=== PATIENT | male | born 1960 | race Caucasian/White ===

== ENCOUNTER 2021-09-12 03:08 | Outpatient (CLI) | payer BC, SELFPAY ==
[2021-09-12 11:07] LABS: Source Nasal/Nares
[2021-09-12 14:01] LABS: COVID-19 PCR Positive (Negative)
== END 2021-09-12 03:09 | disposition home or self-care (01) ==
LOC: LBO 03:08
PROVIDERS: PCP Internal Medicine; Visit Provider Surgery
DX: Z20.822 Contact with and (suspected) exposure to COVID-19 (principal)
CPT/HCPCS: 87635

== ENCOUNTER 2022-01-02 07:05 | Day surgery (SDC) | payer BC, SELFPAY ==
--- NOTE | 2022-01-01 11:04 | HPE_ITS ---
Assessment and Plan Assessment and plan (1) Tubulovillous adenoma of colon: Assessment and plan: Plan:Colonscopy w/ MAC The?patient will be scheduled by my office. ? The pt understands that they need to do a bowel prep and the importance of hydration during this.? The patient understands there is a theoretical risk of renal failure.? For healthy patients we use Gatorade/Miralax Prep.? ?For anyone with renal concerns- GoLytely will be used. ? Plavix and coumadin will need to be held except in unusual circumstances. ? Patients in A. Fib do not need to be bridged with Lovenox or on CVA prophylaxis.? A baby ASA can be continued but full dose ASA needs to be stopped for 10 days prior to the procedure. ? A complete H & P is required within 30 days of the procedure.? GETA w/out airway is used for anesthesia, w/ associated risks. Colonoscopy does not require antibiotics prophylaxis, except as noted below. ? Informed consent is obtained for the procedural (explained in simple layman's terms that?the pt and/or family could understand) explaining risks vs benefits and alternatives to the procedure and consequences if we do not do the procedure and need/rational for the procedure. Risks include but are not limited to: bleeding, infection, perforation of colon.? This would necessitate emergency surgery to repair the damage w/ possible ostomy; and other associated complications w/ the required surgery. ? Also complications of anesthesia including aspiration, NE/CVA/.I discussed with the?patient would they could expect during the procedure, post procedure and recovery time and risks.? The pa geri understands that they need to have a ride home after the procedure.? The patient was given all this information in writing and expressed understanding. If there are any questions or concerns please feel free to contact our office.? ? ? History of Present Illness Narrative: 10 y/o male with history presents for colonoscopy screening pre-op. His last screening was in 2017, which was remarkable for tubulovillious adenoma. He denies a family history of colon cancer. He denies any changes in bowel habits including bloody or black tarry stools, abdominal pain, diarrhea or constipation. He denies constitutional symptoms. Denies use of marijuana or any other recreational or illegal drugs. He denies chest pain, palpitations, dyspnea or dyspnea with exertion. He denies prior history or family history of adverse reactions or complications with anesthesia. The patient denies any history of stroke, NE, seizures, bleeding or clotting disorders. He denies having any implanted metal in his body. pt procedure had to pt cancelled b/c of covid. He had covid in september. Here is here today for CE. Patient completed a bowel prep last p.m. The results are just a clear yellow today. He is having no abdominal pain or nausea currently. He is not currently having any chest pain, shortness of breath, pedal cough or fevers.. All questions are answered to his satisfaction. He is stable for the proposed procedure. Review of Systems All systems reviewed & are unremarkable except as noted in HPI and below PFSH All Active Problems Colon cancer screening (Acute) Loss of vision (Acute) Umbilical hernia (Acute) Medical History COVID-19 09/12/21 Tubulovillous adenoma of colon Surgical History Colonoscopy - IV Sedation (01/15/17) Repair, Ligament ACL Social History Smoking/Tobacco Use Status: Current every day Tobacco Type: smokeless tobacco Smokeless tobacco user: chewing tobacco Smoking risk assessment performed?: Yes Alcohol Intake: current Alcohol Intake frequency: holidays/special occasions only Drug use: Never Substance use type: does not use Do you feel safe at home: Yes Do you feel safe in your relationship?: Yes Meds Allergies and Home Medications Allergies Allergy/AdvReac Type Severity Reaction Status Date / Time No Known Allergies Allergy Unverified 01/02/22 07:19 Home Medications Medication Instructions Recorded Confirmed Type ibuprofen 200 mg tablet (Advil) 400 mg PO Q4H PRN PRN #40 11/30/12 01/01/22 Rx bisacodyl 5 mg tablet,delayed 5 mg PO ONCE #4 tab 09/04/21 01/02/22 Rx release (Dulcolax (bisacodyl)) polyethylene glycol 3350 17 238 g PO ONCE #238 g 09/04/21 01/02/22 Rx gram/dose oral powder Exam Narrative Exam Narrative: PHYSICAL EXAM GENERAL APPEARANCE: Alert, healthy appearance, oriented, in no acute distress SKIN: No rashes.? No breakdown HYDRATION: Well hydrated HEAD, EYES, EARS, NECK, THROAT: Head is normocephalic, pupils equal, round, reactive to light and accommodation, ocular movement intact, sclera clear and no jaundice. ?Dentition intact. No sore throat.? No jaw pain. No thrush NECK: Supple, Trachea midline. No JVD. LUNGS: normal respiration/nl chest excursion. ?Clear to auscultation B/l no R/R/W ?HEART: Regular rate and rhythm, EXTREMITY: No edema or cyanosis? no leg pain, redness, swelling.? No IV infi ltration ABDOMEN: non tender to palpation, no masses or distention, no hernias. Normal bowel sounds NEURO: no focal neuro deficits. ?
--- NOTE | 2022-01-01 13:46 | W.COLOREPORT ---
Colonoscopy Report Date of procedure: 01/02/22 Pre-op diagnosis general: villous of cecum- 2017 Post-op diagnosis procedure note: other (polyps x2/r sided diverticula/hemorrhoids) Surgeon: Rossana Woodson Anesthesia Type: General:No Airway Estimated blood loss (mL): 1 Pathology: none sent Complications: Other Disposition: same day Prep: Miralax/Dulcolax Retraction Time: 10 Procedure Description: After informed consent was obtained the patient was taken to the procedure room and placed in a left decubitous position. Monitors were applied and a time out was done. The patients name, date of , procedure, allergies to medications and metal in their body was reviewed. The patient was then sedated. Once sedated and comfortable a rectal exam was done. External exam was normal. Internal exam revealed a normal sphincter tone and no palpable masses. The scope was then introduced and retrofelexed. Grade I x2 columns internal hemorrhoids were identified. The scope was then advanced to the cecum without. The TI and appendiceal orifice were identified. The prep was be BPS 3 in all segments for total of 9. The scope was then slowly retracted over 10 minutes back into the rectum. He had a 0.75 cm polyp that was removed 100 cm/adjacent to the cecum and, he had another small 5 mm flat polyp at 30 cm. Both of these are removed with cold biting forcep.. All specimen is retrieved and no bleeding is noted. He had a few small scattered large-mouthed right-sided diverticulum with no signs of bleeding or infection. He has grade 1 hemorrhoids. The mucosa is pink and healthy with a normal vascular pattern. The scope was removed and the patient was woken up and taken back to Same day surgery in stable condition. The patient tolerated the procedure well and there were no immediate complications. Follow up: The patient should follow up in repeat in 3 to 5 years, unless they develop changes in bowel habits or other new gastrointestinal complaints.
--- NOTE | 2022-01-01 14:18 | PDOC.DSDIS_ITS ---
Discharge Plan Disposition Patient Disposition: HOME Condition: Good Discharge Details Reason For Visit: colon scpoe Attending Provider: Rossana Woodson Primary Care Provider: Javier Quan Home Meds and New Rx's Prescriptions: Held ibuprofen [Advil] 200 MG tablet 400 mg PO Q4H PRN PRN (Reason: Pain) Qty: 40 0RF Hold Instructions: Resume on 01/05/22. no asa/nsaid's x 72 hrs Discontinued polyethylene glycol 3350 17 gram/dose powder 238 g PO ONCE Qty: 238 0RF Rx Instructions: take per colonoscopy instructions bisacodyl [Dulcolax (bisacodyl)] 5 mg tablet,delayed release (DR/EC) 5 mg PO ONCE Qty: 4 0RF Rx Instructions: take per colonoscopy instructions Discharge Instructions Additional Instructions: DSU Colonoscopy Post- Op Instructions Instructions for Everyone who is given Anesthesia: For your safety, please do the following for the next twenty-four (24) hours: *Do Not operate a motor vehicle (car, truck, motorcycle, etc.) *Do Not drink alcoholic beverages or use any recreational drugs for the first 24 hours or while taking pain medications. The medications in your body may have a reaction that can be dangerous. *Do Not make any important decisions or sign any important papers. Findings: x2 polyps R sided diverticula hemorrhoids Follow up: My office will send a letter with the results follow-up pathology in 2 to 3 weeks time, detailing as to what type of polyps they were and when we want you to repeat your colonoscopy. 1. No lifting over 20 pounds or strenuous activity for the first 24 hours after your procedure. After 24 hours there are no restrictions on your activity but you may feel fatigued for a few days. 2. After you arrive home you may have a light meal and return to your normal diet as you can tolerate it without feeling sick to your stomach. 3. You may have a bloated, gaseous feeling in your belly (abdomen) after a colonoscopy. Passing gas and belching will help. Walking or lying down on your left side with your knees flexed may relieve the discomfort. Call the office at [phone] (Office) or [phone] (Hospital) right away if you notice any of the following: a.Vomiting of blood or ?coffee ground stools?. b.Rectal bleeding 1Tbsp, blood clots or continuous bleeding. c.Severe belly (abdominal) pain. d.A hard distended belly (abdomen) and an inability to pass gas. 4. Please don?t expect to have a normal BM (bowel movement) for 2-3 days after your procedure. 5. If there are questions regarding the findings of your procedure, please contact your doctor 6. If you are unable to contact your doctor with a problem, contact the hospital at [phone]. 7. Continue all your regular medications unless directed otherwise. I understand the above instructions and have no questions. Signature of Patient or Adult Escort Name of Responsible Adult Escort Signature of Nurse Date/Time Activity:: See above Diet:: See above Discharge Orders Discharge Orders: Discharge Order (Routine); Ordered 01/01/22 Ordered By: Rossana Woodson DS: Diagnosis Discharge Diagnosis (1) Tubulovillous adenoma of colon:
[2022-01-02 07:22] VITALS: BP 136/100; PULSE 72; RESP 17; TEMP 36; O2SAT 96
[2022-01-02] MEDS: Lactated Ringers 1,000 ML 80 ML IV (07:34)
--- NOTE | 2022-01-02 07:56 | W.ANESPRE ---
General Info Date of Service Date Performed: 01/02/22 Height: 5 ft 7 in Weight: 97.5 kg Body Mass Index (BMI): 33.6 Surgical Procedure: Operation Date: 01/02/22 08:20 Proposed Procedure Side Surgeon meron Woodson, Meds Allergies and Home Medications Allergies Allergy/AdvReac Type Severity Reaction Status Date / Time No Known Allergies Allergy Unverified 01/02/22 07:19 Home Medication Medication Instructions Recorded ibuprofen 200 mg tablet (Advil) 400 mg PO Q4H PRN PRN #40 11/30/12 bisacodyl 5 mg tablet,delayed 5 mg PO ONCE #4 tab 09/04/21 release (Dulcolax (bisacodyl)) polyethylene glycol 3350 17 238 g PO ONCE #238 g 09/04/21 gram/dose oral powder Current Visit Medications: Current Medications Generic Name Dose Route Start Last Admin Trade Name Freq PRN Reason Stop Dose Admin Hyoscyamine Sulfate 0.125 mg 01/01/22 13:55 Hyoscyamine 0.125 Mg Sl/Oral/Chew SL DIRECTED PRN Ringer's Solution 1,000 mls @ 80 mls/hr 01/02/22 06:00 01/02/22 07:34 IV 01/03/22 23:59 80 mls/hr INFUSION CARY Administration IV Miscellaneous Supplies 1 each 01/02/22 06:00 Iv Access IV 01/03/22 23:59 DIRECTED CARY Ondansetron HCl 4 mg 01/01/22 13:55 Ondansetron 4 Mg/2 Ml Vial IVP Q4H PRN PRN Nausea / Vomiting Sodium Chloride 0 ml 01/02/22 06:00 Normal Saline Flush 10 Ml Syr IV 01/03/22 23:59 PRN PRN Sodium Chloride 0 ml 01/02/22 06:00 Normal Saline 10 Ml Vial IJ 01/03/22 23:59 DIRECTED PRN Sterile Water 0 ml 01/02/22 06:00 Water,Injection,Sterile 10 Ml Vial IJ 01/03/22 23:59 DIRECTED PRN PFSH Active Problems Active Problems: Problem Status Onset Code Colon cancer screening Z12.11 Loss of vision H54.7 Umbilical hernia K42.9 Medical History Medical History COVID-19 09/12/21 Tubulovillous adenoma of colon Surgical History Surgical History Colonoscopy - IV Sedation (01/15/17) Repair, Ligament ACL Tobacco Smoking/Tobacco Use Status: Current every day Tobacco Type: smokeless tobacco Smokeless tobacco user: chewing tobacco Alcohol Alcohol Intake: current Alcohol intake frequency: holidays/special occasions only Substance Use Substance use: Never Substance use type: does not use Vital Signs and Lab Results Vital Signs Most Recent Vital Signs in EMR: Most Recent Vital Signs Temp Pulse Resp BP Pulse Ox 36.0 C L 72 17 136/100 H 96 01/02/22 07:22 01/02/22 07:22 01/02/22 07:22 01/02/22 07:22 01/02/22 07:22 Lab Results Blood Type / Crossmatch: No Data to Display Complete Blood Count: No Data to Display Complete Metabolic Panel: No Data to Display Liver Function Panel: No Data to Display Coagulation Panel: No Data to Display Cardiac Panel: No Data to Display Arterial Blood Gas: No Data to Display Venous Blood Gas: No Data to Display Pancreas Panel: No Data to Display Thyroid Panel: No Data to Display Infectious Disease: No Data to Display Blood Cultures: No Data to Display Toxicology Panel: No Data to Display Anesthesia Assessment and Plan Anesthesia History Personal History: No History of Anesthesia Complications Family History: No Family History of Anesthesia Complications Exercise Tolerance Exercise Tolerance: Metabolic Equivalents<4 Pertinent Negatives Pertinent Negatives: No Symptoms of GERD Cardiac & Pulmonary Exam Cardiac Exam: Normal S1/S2 Heart Sounds Pulmonary Exam: Clear Bilateral Breath Sounds Implantable Cardiac Device Does patient have a Pacemaker or an ICD?: No Airway Exam Known Difficult Airway: No Mallampati Class: 4 (Small mouth) Mouth Opening: Narrow (< 3cm) Thyromental Distance: Greater than 3 cm Neck Range of Motion: Full ROM Neck Circumference: Normal Teeth Condition: Normal Dentition ASA Classification ASA Score: ASA 2 Emergency Case?: No NPO Status NPO Status: NPO Clears >2 hours, Solids >8 hours Anesthesia Plan Resuscitation Status: Full Code Anesthesia Technique: General Anesthesia Airway Planned: Natural Airway Monitors Used: Standard Monitors
[2022-01-02 08:22] VITALS: BMI 33.6
--- NOTE | 2022-01-02 08:39 | BOWEL_PTH ---
PATIENT: Leonardo Sharma LOC: [facility] U#:[id number] AGE/SX: 61/M ROOM: RE01/02/[address]: Rossana Woodson : 1960 BED: DIS: 01/02/2022 SPEC #: [id number] RECD: 01/02/22 12:41 STATUS: DANTE RE #: [id number] SHAUNA: 01/02/22 08:[address]: Rossana Woodson DEPT: Surgical Specimen RECD BY: Carissa Vences ENTERED: 01/02/22 12:41 SP TYPE: Bowel OTHR DR: Javier Quan Tissues: 1 - BIOPSY BOWEL 2 - BIOPSY BOWEL Procedures: GROSS AND MICRO LEVEL 4 Comments: [id number]
[2022-01-02 09:08] VITALS: BP 134/116; PULSE 62; RESP 16; TEMP 36.4; O2SAT 93
--- NOTE | 2022-01-02 09:14 | W.ANESPOSTOP ---
Postoperative Evaluation Date, Time and Location Date Performed: 01/02/22 Time Performed: 09:14 Patient Location: Day Surgery Unit Vital Signs Most Recent Imported Vital Signs: Most Recent Vital Signs Temp Pulse Resp BP Pulse Ox 36.4 C L 62 16 134/116 H 93 01/02/22 09:08 01/02/22 09:08 01/02/22 09:08 01/02/22 09:08 01/02/22 09:08 Pain Score Most Recent Pain Score: Most Recent Pain Score Pain Level 0 01/02/22 07:22 Assessment Mental Status: Arousable with meaningful communication Airway and Respiratory Function: Patent airway with normal (patient baseline) respiratory exam Cardiovascular Function: Hemodynamically Stable Hydration Status: Adequately Hydrated Nausea & Vomiting: No Nausea or Vomiting Pain: Pt. Denies Any Pain Peripheral Nerve Block: Patient did not receive a nerve block
[2022-01-02 09:28] VITALS: BP 130/91; PULSE 57; RESP 17; TEMP 36.4; O2SAT 96
== END 2022-01-02 10:05 | disposition home or self-care (01) ==
LOC: SUR 07:05
PROVIDERS: PCP Internal Medicine; Visit Provider Surgery
PROC: 0DJD8ZZ Inspection of Lower Intestinal Tract, Via Natural or Artificial Opening Endoscopic (ICD-10-PCS; CPT 45378; principal; 2022-01-02 08:15)
DX: Z12.11 Encounter for screening for malignant neoplasm of colon (principal); K63.5 Polyp of colon; K57.30 Diverticulosis of large intestine without perforation or abscess without bleeding; K64.8 Other hemorrhoids; Z86.010 Personal history of colon polyps
CPT/HCPCS: 45380; 88305

== ENCOUNTER 2024-06-09 15:55 | Outpatient (REF) | payer BC, SELFPAY ==
[2024-06-09 15:55] LABS: HGB 16.4 g/dL (13.5-17.5); MCH 31.5 pg (27.0-33.0); MCHC 34.2 % (32.0-36.0); MCV 92 fL (80-95); MPV 11.6 fL (8.0-11.0); Platelet Count 241 10^3/uL (130-400); RDW 12.2 % (11.8-14.1); RDW-SD 42.1 fL; WBC 8.99 10^3/uL (4.4-10.8)
--- OUTSIDE RECORDS SUMMARY | 2024-06-09 15:59 | XMS_ITS | Data Portability ---
Author Organization [facility] [place] [address] Assessment No assessment recorded. Plan of Treatment Reminders Order Date Submit Date Provider Last Modified By Organization Details Last Modified Time Details Appointments New Patient 40 2023 11:50A M Not available Not available Not available Annual Wellness Exam 40 2024 11:00A M Not available Not available Not available Lab HbA1c (hemoglob in A1c), blood [email or web address] [facility] (Registration ), [address] [place] [address] [place], [address], 06/09/2024 12:55:41 TSH, serum, reflex free T4 2023 024 [email or web address] [facility] (Registration ), [address] [place] [address] [place], [address], 06/09/2024 12:55:41 PSA, serum or plasma [email or web address] [facility] (Registration ), [address] [place] [address] [place], [address], 06/09/2024 12:55:41 CBC - 1 purple 1 tiger [facility] [address] [place] [address] [place], [address], 06/09/2024 15:20:38 CMP, serum or plasma 2023 0[facility] [address] [place] [address] [address] [facility] [place], [address], 06/09/2024 15:20:38 lipids, total, serum 2023 [email or web address] [facility] (Registration ), [address] [place] [address] [place], [address], 06/09/2024 15:20:38 Referral None recorded. Procedures None recorded. Surgeries None recorded. Imaging None recorded. Medication Orders None recorded. Patient TargetsNo targets recorded. Patient Instructions Encounter Date Encounter Id Patient Instructions Last Modified By Organization Details Last Modified Time 06/09/2024 [id number] diet [email or web address] Not available 06/09 12:12:35 exercise [email or web address] Not available 2023 12:12:35 Reason for Referral None Reported. Problems Name Problem SNOMED Code Status Onset Date Resolution Date Notes Provider Name and Address Organization Details Recorded Time Obesity 211264163 Active [address], [place], [address] [place] [address] 12:08:57 Nicotine dependence 66436071 Active [address], [place], [address] [place] [address] 14:26:45 Problem Notes None recorded. Medical Equipment None Reported. Allergies No known drug allergies Medications Name Sig Start Date Stop Date Status Note LastModified by Organization Details LastModified Time benzonatate 100 mg capsule TAKE ONE CAPSULE BY MOUTH EVERY 8 HOURS NEEDED 06/09 completed Not Available Not Available Not Available Vitals Date Recorded Body weight Body mass index (BMI) Provider Name and Address Organization Details Last Updated DateTime 06/09/2024 91133.41 g 34.3 kg/m2 [address], [place], [address], [facility] 06/09/2024 12:10:32 Date Recorded Body height Body temperature Respiratory rate Oxygen saturation Oxygen saturation in Arterial blood by Pulse oximetry Heart rate Systolic blood pressure Diastolic blood pressure Provider Name and Address Organization Details Last Updated DateTime 170.18 cm 97.3 [degF] 17 /min 96 % 96 % 81 /min 123 mm[Hg] 80 mm[Hg] ALEXANDRIA BUTT MA [facility] 11:44:05 Social History Question Answer Notes LastModified by Organizat ion Details LastModified Time Tobacco Smoking Status Never Smoker ALEXANDRIA BUTT MA null, [facility] 06/09/2024 12:55:41 Would You Say That, In General, Your Health Is Good [email or web address] Information not available 06/09/2024 How Often Does Anyone, Including Family, Physically Hurt You? Never Information not available 06/09/2024 How Often Does Anyone, Including Family, Insult Or Talk Down To You? Rarely [email or web address] Information no t available 06/09/2024 How Often Does Anyone, Including Family, Threaten You With Harm? Rarely [email or web address] Information not available 06/09/2024 How Often Does Anyone, Including Family, Scream Or Curse At You? Rarely [email or web address] Information not available 06/09/2024 Within The Past 12 Months, You Worried That Your Food Would Run Out Before You Got Money To Buy More. Never True [email or web address] Information n ot available 06/09/2024 Within The Past 12 Months, The Food You Bought Just Didn't Last And You Didn't Have Money To Get More. Never True Information not available 06/09/2024 How Hard Is It For You To Pay For The Very Basics Like Food, Housing, Medical Care, And Heating? Would You Say It Is: Not Hard At All [email or web address] Information not available 06/09/2024 In The Past 12 Months, Has Lack Of Reliable Transportation Kept You From Medical Appointments, Meetings, Work Or From Getting Things Needed For Daily Living? No Information not available 06/09/2024 What Is Your Housing Situation Today? I Have Housing. Information not available 06/09/2024 How Often In The Past Year Have You Used Marijuana (including Smoking, Vaping, Dabbing, Or Edibles)? Never [email or web address] Information not available 06/09/2024 How Often In The Past Year Have You Used Prescription Medications That Were Not Prescribed To You? Never Information not available 06/09/2024 How Often In The Past Year Have You Taken Your Own Prescription Medication More Than The Way It Was Prescribed Or For Different Reasons Than Its Intended Purpose? Never Information not available 06/09/2024 How Often In The Past Year Have You Used Other Drugs (for Example, Heroin, Cocaine, Meth, Salvia, Inhalants)? Never [email or web address] Information not available 06/09/2024 Have You Ever Used IV Drugs? No [email or web address] Information not available 06/09/2024 Date Of Most Recent SBINS 06/09/2024 [email or web address] Information not available 06/09/2024 What Was The Date Of Your Most Recent Tobacco Screening? 06/09/2024 [email or web address] Information n ot available 06/09/2024 Has Tobacco Cessation Counseling Been Provided? Yes Information not available 06/09/2024 Do You Or Have You Ever Used Any Other Forms Of Tobacco Or Nicotine? No [email or web address] Information not available 06/09/2024 Sex: Male Functional Status None recorded. Mental Status None recorded. Family History Nothing Reported. Medical History No medical history recorded. Past Encounters Encounter ID Performer Location Encounter Start Date Encounter Closed Date Diagnosis/Indication Diagnosis SNOMED-CT Code Diagnosis ICD10 Code [id number] WILLIAM GAGNON [address] [address] 06/09/2024 11:31:11 06/09/2024 12:40:13 Adult health examination 286248235 Z00.00 Screening for malignant neoplasm of prostate 803120532 Z12.5 Obesity 459253151 E66.9 Nicotine dependence 5629 4008 F17.200 Health Concerns Section Related Observation LastModified by Organization Detai ls LastModified Time None Recorded Concern Status LastModified by Organization Details LastModified Time None Recorded Advance Directives Directive None Recorded Payers Encounter Date Sequence Insurance Name Policy Number Policy Perales Covered Member ID Perales Member ID Guarantor Name 06/09/2024 1 [place] Leonardo Sharma [id number] Leonardo Sharma Notes Date Note Type Note Provider Name and Address Organization Details Recorded Time 06/09/2024 text/html HPI Notes: Here today for annual exam. Had some left sided knee pain earlier this year, coupled with some secondary hip pain, that are both drastically improved. WILLIAM GAGNON [address], [place], [address], [facility]. 06/09/2024 14:30:35
--- OUTSIDE RECORDS SUMMARY | 2024-06-09 15:59 | XMS_ITS | Continuity of Care Document ---
Author Organization [facility] Address [address] [place] [address] Assessment No assessment recorded. Plan of Treatment Reminders Order Date Submit Date Provider Last Modified By Organization Details Last Modified Time Details Appointments New Patient 40 2023 11:50A M Not available Not available Not available Annual Wellness Exam 40 2024 11:00A M Not available Not available Not available Lab HbA1c (hemoglob in A1c), blood 2023 [email or web address] [facility] (Registration ), [address] [place] [address] [place], [address], 06/09/2024 12:55:41 TSH, serum, reflex free T4 2023 024 [email or web address] [facility] (Registration ), [address] [place] [address] [place], [address], 06/09/2024 12:55:41 PSA, serum or plasma [email or web address] [facility] (Registration ), [address] [place] [address] [place], [address], 06/09/2024 12:55:41 CBC - 1 purple 1 tiger [facility] [address] [place] [address] [place], [address], 06/09/2024 15:20:38 CMP, serum or plasma 2023 [facility]24 [facility] [address] [place] [address] Dr, [place], [address], 06/09/2024 15:20:38 lipids, total, serum 2023 024 [email or web address] [facility] (Registration ), [address] [place] [address] [place], [address], 06/09/2024 15:20:38 Referral None recorded. Procedures None recorded. Surgeries None recorded. Imaging None recorded. Medication Orders None recorded. Patient TargetsNo targets recorded. Patient Instructions Encounter Date Encounter Id Patient Instructions Last Modified By Organization Details Last Modified Time 06/09/2024 [id number] diet [email or web address] Not available 06/09 12:12:35 exercise [email or web address] Not available 2023 12:12:35 Reason for Referral None Reported. Problems Name Problem SNOMED Code Status Onset Date Resolution Date Notes Provider Name and Address Organization Details Recorded Time Obesity 626796836 Active [address], [place], [address] [place] [address] 12:08:57 Nicotine dependence 64511754 Active [address], [place], [address] [place] [address] 14:26:45 Problem Notes None recorded. Medical Equipment [...] Address Organization Details Last Updated DateTime 06/09/2024 08911.41 g 34.3 kg/m2 [address], [place], [address], [facility] 06/09/2024 12:10:32 Date Recorded Body height Body temperature Respiratory rate Oxygen saturation Oxygen saturation in Arterial blood by Pulse oximetry Heart rate Systolic blood pressure Diastolic blood pressure Provider Name and Address Organization Details Last Updated DateTime 170.18 cm 97.3 [degF] 17 /min 96 % 96 % 81 /min 123 mm[Hg] 80 mm[Hg] ALEXANDRIA BUTT MA [facility] 11:44:05 Social History Question Answer Notes LastModified by Organizat ion Details LastModified Time Tobacco Smoking Status Never Smoker ALEXANDRIA BUTT MA null, [facility] 06/09/2024 12:55:41 Would You Say That, In General, Your Health Is Good [email or web address] Information not available 06/09/2024 How Often Does Anyone, Including Family, Physically Hurt You? Never [email or web address] Information not available 06/09/2024 How Often Does Anyone, Including Family, Insult Or Talk Down To You? Rarely [email or web address] Information no t available 06/09/2024 How Often Does Anyone, Including Family, Threaten You With Harm? Rarely Information not available 06/09/2024 How Often Does Anyone, Including Family, Scream Or Curse At You? Rarely [email or web address] Information not available 06/09/2024 Within The Past 12 Months, You Worried That Your Food Would Run Out Before You Got Money To Buy More. Never True [email or web address] Information n ot available 06/09/2024 Within The Past 12 Months, The Food You Bought Just Didn't Last And You Didn't Have Money To Get More. Never True [email or web address] Information not available 06/09/2024 How Hard Is It For You To Pay For The Very Basics Like Food, Housing, Medical Care, And Heating? Would You Say It Is: Not Hard At All [email or web address] Information not available 06/09/2024 In The Past [...] (including Smoking, Vaping, Dabbing, Or Edibles)? Never [email or web address] Information not available 06/09/2024 How Often In The Past Year Have You Used Prescription Medications That Were Not Prescribed To You? Never [email or web address] Information not available 06/09/2024 How Often In The Past Year Have You Taken Your Own Prescription Medication More Than The Way It Was Prescribed Or For Different Reasons Than Its Intended Purpose? Never [email or web address] Information not available 06/09/2024 How Often In The Past Year Have You Used Other Drugs (for Example, Heroin, Cocaine, Meth, Salvia, Inhalants)? Never [email or web address] Information not available 06/09/2024 Have You Ever Used IV Drugs? No [email or web address] Information not available 06/09/2024 Date Of Most Recent SBINS 06/09/2024 [email or web address] Information not available 06/09/2024 What Was The Date Of Your Most Recent Tobacco Screening? 06/09/2024 [email or web address] Information n ot available 06/09/2024 Has Tobacco Cessation Counseling Been Provided? Yes [email or web address] Information not available 06/09/2024 Do You Or Have You Ever Used Any Other Forms Of Tobacco Or Nicotine? No Information not available 06/09/2024 Sex: Male Functional Status None recorded. Mental Status None recorded. Family History Nothing Reported. Medical History No medical history recorded. Past Encounters Encounter ID Performer Location Encounter Start Date Encounter Closed Date Diagnosis/Indication Diagnosis SNOMED-CT Code Diagnosis ICD10 Code [id number] [address] [address] 06/09/2024 11:31:11 06/09/2024 12:40:13 Adult health examination 233870864 Z00.00 Screening for malignant neoplasm of prostate 689557263 Z12.5 Obesity 369918713 E66.9 Nicotine dependence 5629 4008 F17.200 Health Concerns Section Related Observation LastModified by Organization Detai ls LastModified Time None Recorded Concern Status LastModified by Organization Details LastModified Time None Recorded Payers Encounter Date Sequence Insurance Name Policy Number Policy Perales Covered Member ID Perales Member ID Guarantor Name 06/09/2024 1 [place] [place] Leonardo Shrama [id number] Leonardo Sharma Notes Date Note Type Note Provider Name and Address Organization Details Recorded Time 06/09/2024 text/html HPI Notes: Here today for annual exam. Had some left sided knee pain earlier this year, coupled with some secondary hip pain, that are both drastically improved. MARTELL ALMANZAR, WILLIAM [address], [place], [address], [facility]. 06/09/2024 14:30:35
[2024-06-09 16:20] LABS: ALT 48 U/L (16-63); AST 28 U/L (15-37); Albumin 4.6 g/dL (3.4-5.0); Alkaline Phosphatase 73 U/L (46-116); Anion Gap 6.5 mmol/L (3-11); BUN 16 mg/dL (7-18); Bilirubin, Total 0.69 mg/dL (0.2-1.0); CO2 28.5 mmol/L (21.0-32.0); CREATININE 1.2 mg/dL (0.70-1.30); Calcium 9.8 mg/dL (8.5-10.1); Calculated LDL 175 mg/dL (<100); Chloride 106 mmol/L (98-107); Cholesterol 261 mg/dL (<200); Glucose 103 mg/dL (74-106); HDL Cholesterol 45 mg/dL (40-60); Hemoglobin A1C 5.7 % (<5.7); Potassium 4.6 mmol/L (3.5-5.1); Sodium 141 mmol/L (136-145); Total Protein 7.8 g/dL (6.4-8.2); Triglyceride 207 mg/dL (<150)
[2024-06-12 09:29] LABS: PSA, Screening 0.9 ng/mL (<=4.5)
== END 2024-06-09 15:56 | disposition home or self-care (01) ==
LOC: NCHCN 15:55
PROVIDERS: PCP Nurse Practitioner Family; Visit Provider Nurse Practitioner Family
DX: Z12.5 Encounter for screening for malignant neoplasm of prostate (principal); E66.9 Obesity, unspecified; Z00.00 Encounter for general adult medical examination without abnormal findings
CPT/HCPCS: 80053; 80061; 84153; 85027; 83036; 84443

== ENCOUNTER → 2025-07-09 02:07 | Outpatient (CLI) | payer OTHER, SELFPAY ==
--- NOTE | 2025-07-09 | DI.RAD_ITS ---
Exam(s) XR KNEE LT 3V AP,LAT,CEDRICK EXAM: XR KNEE LT 3V AP,LAT,CEDRICK CLINICAL HISTORY: LT KNEE PAIN, M25.562. TECHNIQUE: 2D digital imaging was performed of the left knee. Three images were obtained. AP, lateral and PA tunnel views were obtained. COMPARISON: No exams were available for comparison FINDINGS: BONES: No acute fracture is present. No bony destructive lesion is seen. JOINTS: There osteophytes seen at the posterior patella. No joint effusion is seen. No loose body. SOFT TISSUE: Atherosclerotic calcification is present. IMPRESSION: Mild degenerative changes of the left knee. DATA REPOSITORY: RADIATION DOSE DELIVERED:
--- NOTE | 2025-07-09 | DI.RAD_ITS ---
Exam(s) XR HIP LT COMPLETE AP PELVIS EXAM: XR HIP LT COMPLETE AP PELVIS CLINICAL HISTORY: LT HIP DEGENERATIVE ARTHRITIS,M16.12. TECHNIQUE: 2D digital imaging was performed of the left hip. Three views were obtained. AP pelvis and lateral left hip views were obtained. COMPARISON: No exams were available for comparison FINDINGS: BONES: No acute fracture is present. No bony destructive lesion is seen. JOINTS: No dislocation present. There is mild narrowing of the superior joint space of both hips. SOFT TISSUE: Normal. IMPRESSION: Mild joint space narrowing of the hips bilaterally. DATA REPOSITORY: RADIATION DOSE DELIVERED:
== END ==
PROVIDERS: PCP Nurse Practitioner Family; Visit Provider Chiropractor
DX: M17.12 Unilateral primary osteoarthritis, left knee (principal); M16.0 Bilateral primary osteoarthritis of hip
CPT/HCPCS: 73562; 73502